=== PATIENT | male | born 1980 | race Caucasian/White ===

== ENCOUNTER 2017-09-06 11:39 | Emergency (ER) | payer OTHER ==
[~2017-09-06] VITALS: Ht 188 cm; Wt 66.0 kg
[2017-09-06] VITALS (9 sets, daily range): BP systolic 99–112; BP diastolic 53–68; PULSE 64–82; RESP 17–24; TEMP 98.4; O2SAT 98–99
[~2017-09-06 11:39] MED LIST: HYDR-3583 PO; QUET1TAB9 PO; QUET5TAB PO; WALKER/ADULT/FO1 MIS
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
[2017-09-06] MEDS ORDERED: SODIUM CHLORIDE 0.9% FLUSH 10 ML FLUSH IVF PRN (12:15)
[2017-09-06 13:10] LABS: AUTOMATED NEUTROPHIL # 4.5 TH/MM3 (1.8-7.7); BASOPHIL # 0.1 TH/MM3 (0-0.2); BASOPHIL % 0.9 % (0.0-2.0); EOSINOPHIL # 0.1 TH/MM3 (0-0.4); EOSINOPHIL % 1.9 % (0.0-4.0); HEMATOCRIT 34.9 % (39.0-51.0); HEMO FLAGS DIFF FINAL; LYMPH % 19.9 % (9.0-44.0); LYMPHOCYTE # 1.3 TH/MM3 (1.0-4.8); MEAN CELL VOLUME 91.3 FL (80.0-100.0); MEAN CORPUSCULAR HEMOGLOBIN 29.3 PG (27.0-34.0); MEAN CORPUSCULAR HGB CONC 32.1 % (32.0-36.0); MONO % 9.5 % (0.0-8.0); NEUT % 67.8 % (16.0-70.0); PLATELET COUNT 205 TH/MM3 (150-450); RED BLOOD COUNT 3.82 MIL/MM3 (4.50-5.90); RED CELL DISTRIBUTION WIDTH 13.7 % (11.6-17.2); WHITE BLOOD COUNT 6.6 TH/MM3 (4.0-11.0)
[2017-09-06 13:36] LABS: BLOOD, URINE NEG (NEG); COMMENT (UR) CULT NOT INDICATED; CULTURE IF INDICATED CULT NOT INDICATED; GLUCOSE,URINE NEG (NEG); KETONE, URINE NEG (NEG); MUCUS URINE FEW /lpf (OCC); NITRITE,URINE NEG (NEG); PH, URINE 5.5 (5.0-8.5); SQUAMOUS EPITHELIAL CELL URINE <1 /hpf (0-5); URINE COLOR YELLOW (YELLW/STRAW)
[2017-09-06 14:31] LABS: ALKALINE PHOSPHATASE 62 U/L (45-117); ALT (GPT) 49 U/L (12-78); ANION GAP 6 MEQ/L (5-15); AST (GOT) 41 U/L (15-37); BICARBONATE 25.9 MEQ/L (21.0-32.0); BLOOD UREA NITROGEN 19 MG/DL (7-18); CHLORIDE 108 MEQ/L (98-107); GLOMERULAR FILTRATION RATE 97 ML/MIN (>89); POTASSIUM 4.4 MEQ/L (3.5-5.1); SODIUM (NA) 140 MEQ/L (136-145); TOTAL BILIRUBIN ADULT 0.3 MG/DL (0.2-1.0)
[2017-09-06 14:40] LABS: ALCOHOL LESS THAN 3 MG/DL (0-5)
--- NOTE | 2017-09-07 14:31 | EKG ---
Date Performed: 09/06/2017 Time Performed: 12:32:45 PTAGE: 37 years EKG: Sinus rhythm POSSIBLE RIGHT VENTRICULAR CONDUCTION DELAY BORDERLINE ECG NO PREVIOUS TRACING DOCTOR: Go Medina Interpretating Date/Time 09/07/2017 14:23:49
== END 2017-09-06 16:54 | disposition home or self-care (01) ==
LOC: NEPC 11:39 → NEDAMB 16:54
DX: F19.10 Other psychoactive substance abuse, uncomplicated (principal); L97.319 Non-pressure chronic ulcer of right ankle with unspecified severity; R00.0 Tachycardia, unspecified; R94.31 Abnormal electrocardiogram [ECG] [EKG]; F17.200 Nicotine dependence, unspecified, uncomplicated; Z79.899 Other long term (current) drug therapy; Z86.59 Personal history of other mental and behavioral disorders; Z87.39 Personal history of other diseases of the musculoskeletal system and connective tissue
CPT/HCPCS: 80053; 80307; 81001; 85025; 93005; 99284; E0113

== ENCOUNTER 2017-09-08 17:56 | Emergency (ER) | payer SELFPAY ==
[~2017-09-08] VITALS: Ht 188 cm; Wt 70.0 kg
[~2017-09-08 17:56] MED LIST changes: -WALKER/ADULT/FO1 MIS
[2017-09-08 17:59] VITALS: BP 110/72; PULSE 100; RESP 21; TEMP 98.8; O2SAT 99
[2017-09-08 18:42] VITALS: BP 108/62; PULSE 68; RESP 17; O2SAT 100
[2017-09-08 19:08] VITALS: BP 101/62; PULSE 81; RESP 20; O2SAT 100
[2017-09-08 19:46] LABS: AUTOMATED NEUTROPHIL # 6.5 TH/MM3 (1.8-7.7); BASOPHIL # 0.1 TH/MM3 (0-0.2); BASOPHIL % 0.7 % (0.0-2.0); EOSINOPHIL # 0.1 TH/MM3 (0-0.4); EOSINOPHIL % 1.6 % (0.0-4.0); HEMATOCRIT 34.5 % (39.0-51.0); HEMO FLAGS DIFF FINAL; LYMPH % 15.3 % (9.0-44.0); LYMPHOCYTE # 1.3 TH/MM3 (1.0-4.8); MEAN CELL VOLUME 90.7 FL (80.0-100.0); MEAN CORPUSCULAR HEMOGLOBIN 29.9 PG (27.0-34.0); MONO % 6.8 % (0.0-8.0); NEUT % 75.6 % (16.0-70.0); PLATELET COUNT 223 TH/MM3 (150-450); RED CELL DISTRIBUTION WIDTH 13.9 % (11.6-17.2); WHITE BLOOD COUNT 8.6 TH/MM3 (4.0-11.0)
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
[2017-09-08 20:03] LABS: ANION GAP 3 MEQ/L (5-15); AST (GOT) 48 U/L (15-37); BICARBONATE 28.9 MEQ/L (21.0-32.0); BLOOD UREA NITROGEN 22 MG/DL (7-18); CHLORIDE 106 MEQ/L (98-107); GLOMERULAR FILTRATION RATE 87 ML/MIN (>89); POTASSIUM 4.4 MEQ/L (3.5-5.1); SODIUM (NA) 138 MEQ/L (136-145)
[2017-09-08 20:04] LABS: ALT (GPT) 62 U/L (12-78)
[2017-09-08 20:05] LABS: ALCOHOL LESS THAN 3 MG/DL (0-5)
[2017-09-08 20:06] LABS: ALKALINE PHOSPHATASE 74 U/L (45-117); TOTAL BILIRUBIN ADULT 0.4 MG/DL (0.2-1.0)
[2017-09-08] MEDS ORDERED: KETOROLAC TROMETHAMINE 60 MG/2 ML (IM) VIAL IM ONE (20:30)
[2017-09-08] MEDS ORDERED: PHENYTOIN SODIUM 100 MG CAP PO ONE (20:45)
[2017-09-08] MEDS ORDERED: DILA100C PO (21:00)
== END 2017-09-08 21:15 | disposition home or self-care (01) ==
LOC: NEPC 17:56
DX: G40.909 Epilepsy, unspecified, not intractable, without status epilepticus (principal); F31.9 Bipolar disorder, unspecified; F41.9 Anxiety disorder, unspecified; F17.210 Nicotine dependence, cigarettes, uncomplicated; F20.9 Schizophrenia, unspecified
CPT/HCPCS: 80053; 80185; 80307; 83735; 84100; 85025; 96372; 99284; J1885

== ENCOUNTER 2018-03-01 19:43 | Emergency (ER) | payer SELFPAY ==
[~2018-03-01] VITALS: Ht 172.7 cm; Wt 82.0 kg
[~2018-03-01 19:43] MED LIST changes: +DILA100C PO
[2018-03-01 21:59] VITALS: BP 95/60; PULSE 68; RESP 18; O2SAT 97
[2018-03-01] MEDS ORDERED: IBUP-232 PO (22:00)
[2018-03-01] MEDS ORDERED: SULFAMETHOXAZOLE-TRIMETHOPRIM DS 800-160 MG TAB PO ONE (22:00)
[2018-03-01] MEDS ORDERED: IBUPROFEN 600 MG TAB PO ONE (22:00)
[2018-03-01] MEDS ORDERED: BACT800T5 PO (22:00)
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
== END 2018-03-01 22:43 | disposition home or self-care (01) ==
LOC: NEPD 19:43
DX: S91.301A Unspecified open wound, right foot, initial encounter (principal); F17.210 Nicotine dependence, cigarettes, uncomplicated; F19.10 Other psychoactive substance abuse, uncomplicated; X58.XXXA Exposure to other specified factors, initial encounter; Z59.0 Homelessness
CPT/HCPCS: 99283

== ENCOUNTER 2018-06-06 07:16 | Inpatient (IN) ==
[2018-06-06] MEDS ORDERED: Morphine Inj 4 MG/ML Vial IV.PUSH ONE (07:27)
[2018-06-06] MEDS ORDERED: Sod Chloride 0.9% Inj 1,000 ML IV.SIG ONE (07:27)
--- NOTE | 2018-06-06 07:51 | ED ---
HPI General Chief Complaint: Abdominal Pain Stated Complaint: Adm pain Time Seen by Provider: 06/06/18 07:27 History of Present Illness HPI narrative: Patient presents to the emergency department with abdominal pain. Patient has epigastric pain for 1 week that radiates to his chest and back. Similar episode in the past and states that he was told he has gallbladder issues. Pain describes been intermittent initially, today has been constant, 4 out of 10, p.o. intake and bowel movement makes it worse, no alleviating factors. Tried Rolaids without relief of symptoms. Reports shortness of breath with the pain, nausea but no vomiting, nonbloody diarrhea, but denies fever, chills, dysuria. Related Data Home Medications Medication Instructions Recorded Confirmed No Known Home Medications 05/21/18 05/21/18 Previous Rx's Medication Instructions Recorded hydroxyzine HCl 25 mg PO Q8H PRN #14 tab 05/21/18 Allergies Allergy/AdvReac Type Severity Reaction Status Date / Time No Known Allergies Allergy Verified 05/21/18 00:25 Review of Systems ROS: all other systems reviewed are negative [facility] Social History Social History Substance History: Past History Second Hand Smoke Exposure: Yes Smoking Status: Current every day smoker Tobacco Type: Cigarettes How Often Do You Have a Drink Containing Alcohol: 4 or more times a week Recent Travel in [facility] within the Last 8 Weeks: No Recent Out of Country Travel within the Last 8 Weeks: No Immunization History Tetanus Immunization: Unsure Exam Narrative Exam Narrative: GENERAL: No acute distress. SKIN: Focused skin assessment warm/dry. HEAD: Atraumatic. Normocephalic. EYES: Pupils equal and round. No scleral icterus. No injection or drainage. ENT: No nasal bleeding or discharge. Mucous membranes pink and moist. NECK: Trachea midline. No JVD. CARDIOVASCULAR: Regular rate and rhythm. No murmur appreciated. RESPIRATORY: No accessory muscle use. Clear to auscultation. Breath sounds equal bilaterally. GASTROINTESTINAL: Abdomen soft, epigastric and left upper quadrant tender, nondistended. Right CVA tenderness. MUSCULOSKELETAL: Healing right foot ulcer. No clubbing. No cyanosis. No edema. NEUROLOGICAL: Awake and alert. No obvious cranial nerve deficits. Motor grossly within normal limits. Normal speech. PSYCHIATRIC: Appropriate mood and affect; insight and judgment normal. Course Initial Documented Vital Signs Temperature 98.6 F 06/06/18 07:22 Pulse Rate 68 06/06/18 07:22 Respiratory Rate 17 06/06/18 07:22 Blood Pressure 139/70 06/06/18 07:22 Pulse Oximetry 99 06/06/18 07:22 Last Documented Vital Signs Temperature 98.6 F 06/06/18 07:22 Pulse Rate 75 06/06/18 09:02 Respiratory Rate 17 06/06/18 09:02 Blood Pressure 132/64 06/06/18 09:02 Pulse Oximetry 100 06/06/18 09:02 Medical Decision Making MDM Narrative Medical decision making narrative: Patient presents to the emergency department with abdominal pain. Patient placed on hall monitor, continuous pulse ox, and IV access obtained. Labs and ultrasound ordered, as well as 2 mg IV morphine, 4 mg IV Zofran, 1 L IV normal saline. Labs: Slightly decreased hemoglobin hematocrit, increase BUN, AST U/S: CONCLUSION:1. Multiple gallstones with minimal tenderness of the gallbladder. There are no other ancillary signs of acute cholecystitis. CXR: No acute findings 0945: Spoke to Dr. Rush-Clear liquids, IV zosyn, NPO after MN, plan for surgery tomorrow. Pateint has been admitted for early cholecysitis, given an additional 2mg IV morphine for pain. Differential Diagnosis Differential Diagnosis: Cholecystitis, pancreatitis, peptic ulcer disease/GERD, ACS, kidney stones, UTI, Derrick Lab Data Result diagrams: 06/06/18 07:30 06/06/18 07:30 Lab Results 06/06/18 06/06/18 06/06/18 Range/Units 07:30 07:30 07:30 WBC 5.9 (4.0-11.0) th/mm3 RBC 3.91 L (4.50-5.90) mil/mm3 Hgb 12.1 L (13.0-17.0) gm/dL Hct 35.9 L (39.0-51.0) % MCV 91.8 (80.0-100.0) fL MCH 31.0 (27.0-34.0) pg MCHC 33.7 (32.0-36.0) % RDW 15.4 (11.6-17.2) % Plt Count 195 (150-450) th/mm3 MPV 7.9 (7.0-11.0) fL Neut % (Auto) 64.3 (16.0-70.0) % Lymph % (Auto) 25.7 (9.0-44.0) % [place] % (Auto) 7.2 (0.0-8.0) % Eos % (Auto) 2.4 (0.0-4.0) % Baso % (Auto) 0.4 (0.0-2.0) % Neut # (Auto) 3.8 (1.8-7.7) th/mm3 Lymph # (Auto) 1.5 (1.0-4.8) th/mm3 [place] # (Auto) 0.4 (0.0-0.9) th/mm3 Eos # (Auto) 0.1 (0.0-0.4) th/mm3 Baso # (Auto) 0.0 (0.0-0.2) th/mm3 WBC Differential . Differential Comment Auto diff final PT 9.9 (9.8-11.6) sec INR 1.0 Ratio APTT 25.3 (24.3-30.1) sec Sodium 145 (136-145) meq/L Potassium 4.1 (3.5-5.1) meq/L Chloride 113 H (98-107) meq/L Carbon Dioxide 28.3 (21.0-32.0) meq/L Anion Gap 4 L (5-15) meq/L BUN 23 H (7-18) mg/dL Creatinine 0.90 (0.60-1.30) mg/dL Estimated GFR Greater than 89 (>89) mL/min Random Glucose 84 (74-106) mg/dL Calcium 8.0 L (8.5-10.1) mg/dL Total Bilirubin 0.2 (0.2-1.0) mg/dL AST 46 H (15-37) U/L ALT 54 (12-78) U/L Alkaline Phosphatase 66 (45-117) U/L Total Creatine Kinase 99 (39-308) U/L Troponin I Less than 0.02 L (0.02-0.05) ng/mL Total Protein 5.7 L (6.4-8.2) g/dL Albumin 3.1 L (3.4-5.0) g/dL Lipase 244 (73-393) U/L Urine Color (Yellw/Straw) Urine Clarity (Clear) Urine pH (5.0-8.5) Ur Specific [place] (1.002-1.035) Urine Protein (Neg-Trace) mg/dL Urine Glucose (UA) (Negative) mg/dL Urine Ketones (Negative) mg/dL Urine Occult Blood (Negative) Urine Nitrate (Negative) Urine Bilirubin (Negative) Urine Urobilinogen (Less than 2) mg/dL Ur Leukocyte Esterase (Negative) Urine RBC (0-3) /hpf Urine WBC (0-5) /hpf Micro UA Comment Urine Culture Comments 06/06/18 Range/Units 09:15 WBC (4.0-11.0) th/mm3 RBC (4.50-5.90) mil/mm3 Hgb (13.0-17.0) gm/dL Hct (39.0-51.0) % MCV (80.0-100.0) fL MCH (27.0-34.0) pg MCHC (32.0-36.0) % RDW (11.6-17.2) % Plt Count (150-450) th/mm3 MPV (7.0-11.0) fL Neut % (Auto) (16.0-70.0) % Lymph % (Auto) (9.0-44.0) % [place] % (Auto) (0.0-8.0) % Eos % (Auto) (0.0-4.0) % Baso % (Auto) (0.0-2.0) % Neut # (Auto) (1.8-7.7) th/mm3 Lymph # (Auto) (1.0-4.8) th/mm3 [place] # (Auto) (0.0-0.9) th/mm3 Eos # (Auto) (0.0-0.4) th/mm3 Baso # (Auto) (0.0-0.2) th/mm3 WBC Differential Differential Comment PT (9.8-11.6) sec INR Ratio APTT (24.3-30.1) sec Sodium (136-145) meq/L Potassium (3.5-5.1) meq/L Chloride (98-107) meq/L Carbon Dioxide (21.0-32.0) meq/L Anion Gap (5-15) meq/L BUN (7-18) mg/dL Creatinine (0.60-1.30) mg/dL Estimated GFR (>89) mL/min Random Glucose (74-106) mg/dL Calcium (8.5-10.1) mg/dL Total Bilirubin (0.2-1.0) mg/dL AST (15-37) U/L ALT (12-78) U/L Alkaline Phosphatase (45-117) U/L Total Creatine Kinase (39-308) U/L Troponin I (0.02-0.05) ng/mL Total Protein (6.4-8.2) g/dL Albumin (3.4-5.0) g/dL Lipase (73-393) U/L Urine Color Yellow (Yellw/Straw) Urine Clarity Clear (Clear) Urine pH 6.0 (5.0-8.5) Ur Specific [place] 1.020 (1.002-1.035) Urine Protein Negative (Neg-Trace) mg/dL Urine Glucose (UA) Negative (Negative) mg/dL Urine Ketones Negative (Negative) mg/dL Urine Occult Blood Negative (Negative) Urine Nitrate Negative (Negative) Urine Bilirubin Negative (Negative) Urine Urobilinogen 4 or greater (Less than 2) mg/dL Ur Leukocyte Esterase Negative (Negative) Urine RBC Less than 1 (0-3) /hpf Urine WBC 1 (0-5) /hpf Micro UA Comment Culture not ind Urine Culture Comments Culture not ind Imaging Data Radiologist's impression: Chest X-Ray 06/06/18 07:27 CONCLUSION: 1. No acute cardiopulmonary disease. Gallbladder Ultrasound 06/06/18 07:27 CONCLUSION: 1. Multiple gallstones with minimal tenderness of the gallbladder. There are no other ancillary signs of acute cholecystitis. Discharge Plan Discharge Disposition Patient Disposition: 30 Still Patient Discharge Condition Condition: Stable Discharge Details Diagnosis: Acute cholecystitis, Chest pain Physicians Team ED Provider: Gracie Webb Primary Care Provider: Douglas Moya Rxs /Orders / Referrals /Forms Prescriptions: No Action No Known Home Medications RF: 0 hydroxyzine HCl 25 mg tablet 25 mg PO Q8H PRN (Reason: itching) Qty: 14 RF: 0 Discharge Interventions Interventions: Vital Signs Last Done: 06/06/18 09:02 Status ED Status: With Doctor
[2018-06-06 07:52] LABS: Baso % (Auto) 0.4 % (0.0-2.0); Eos # (Auto) 0.1 th/mm3 (0.0-0.4); Eos % (Auto) 2.4 % (0.0-4.0); Hematocrit 35.9 % (39.0-51.0); Hemoglobin 12.1 gm/dL (13.0-17.0); Lymph # (Auto) 1.5 th/mm3 (1.0-4.8); Lymph % (Auto) 25.7 % (9.0-44.0); Mean Corpuscular HGB Conc 33.7 % (32.0-36.0); Mean Corpuscular Volume 91.8 fL (80.0-100.0); Mean Platelet Volume 7.9 fL (7.0-11.0); Mono # (Auto) 0.4 th/mm3 (0.0-0.9); Mono % (Auto) 7.2 % (0.0-8.0); Neut # (Auto) 3.8 th/mm3 (1.8-7.7); Neut % (Auto) 64.3 % (16.0-70.0); Platelet Count 195 th/mm3 (150-450); Red Blood Count 3.91 mil/mm3 (4.50-5.90); Red Cell Distribution Width 15.4 % (11.6-17.2); White Blood Count 5.9 th/mm3 (4.0-11.0)
[2018-06-06 08:12] LABS: Alanine Aminotransferase 54 U/L (12-78); Alkaline Phosphatase 66 U/L (45-117); Total Protein 5.7 g/dL (6.4-8.2)
[2018-06-06 08:13] LABS: Activated Partial Thrombo Time 25.3 sec (24.3-30.1); Prothrombin Time 9.9 sec (9.8-11.6)
[2018-06-06 08:21] LABS: Creatine Kinase 99 U/L (39-308)
[2018-06-06 08:36] LABS: Albumin 3.1 g/dL (3.4-5.0); Anion Gap 4 meq/L (5-15); Aspartate Aminotransferase 46 U/L (15-37); Blood Urea Nitrogen 23 mg/dL (7-18); Carbon Dioxide 28.3 meq/L (21.0-32.0); Chloride 113 meq/L (98-107); Glomerular Filtration Rate Greater Than 89 mL/min (>89); Glucose,Random 84 mg/dL (74-106); Lipase 244 U/L (73-393); Potassium 4.1 meq/L (3.5-5.1); Sodium 145 meq/L (136-145)
--- NOTE | 2018-06-06 09:11 | XR ---
EXAM DATE: 06/06/2018 7:47 AM EDT AGE/SEX: 38 years / Male INDICATIONS: Pain left lower anterior chest for one week, pain is now moving around the left side to the back CLINICAL DATA: This is the patient's initial encounter. Patient reports that signs and symptoms have been present for 1 week and indicates a pain score of 8/10. MEDICAL/SURGICAL HISTORY: None. None. COMPARISON: No prior exams available for comparison. FINDINGS: A single AP view of the chest demonstrates the lungs to be symmetrically aerated without evidence of mass, infiltrate or effusion. The cardiomediastinal contours are unremarkable. Osseous structures a re intact. CONCLUSION: 1. No acute cardiopulmonary disease. Electronically signed by: Chintan Metz MD 06/06/2018 9:10 AM EDT
--- NOTE | 2018-06-06 09:33 | US ---
EXAM DATE: 06/06/2018 8:52 AM EDT AGE/SEX: 38 years / Male INDICATIONS: Abdominal pain. CLINICAL DATA: This is the patient's initial encounter. Patient reports that signs and symptoms have been present for 1 week and indicates a pain score of 5/10. MEDICAL/SURGICAL HISTORY: Hepatitis C. Glaucoma. . Right foot hardware surgery. Right foot ski n grafting. COMPARISON: No prior exams available for comparison. MEASUREMENTS: Liver:__ 17.6 cm. Common Bile Duct:__ 3mm. FINDINGS: Liver: Normal echotexture without focal lesion or ductal dilatation. Portal Vein: Hepatopedal flow seen in portal vein. Common Duct: No intraluminal mass or stone visualized. Gallbladder: Multiple gallstones with minimal tenderness over the gallbladder. Pancreas: The visualized portions are within normal limits Right Kidney: Normal echotexture and cortical thickness. No mass or hydronephrosis. Other: CONCLUSION: 1. Multiple gallstones with minimal tenderness of the gallbladder. There are no other ancillary sign s of acute cholecystitis. Electronically signed by: Syd Noel MD 06/06/2018 9:31 AM EDT
[2018-06-06] MEDS ORDERED: Piperacil/Tazo 3.375 GM Premix 50 ML IV.SIG ONE (09:44)
[2018-06-06 09:46] LABS: Bilirubin,Urine Negative (Negative); Clarity,Urine Clear (Clear); Color,Urine Yellow (Yellw/Straw); Glucose,Urine (UA) Negative (Negative); Leukocyte Esterase,Urine Negative (Negative); Nitrite,Urine Negative (Negative); Urobilinogen,Urine 4 or Greater mg/dL (Less than 2)
[2018-06-06] MEDS ORDERED: Morphine Sulfate Inj 2 MG/ML Vial IV.PUSH ONE (10:07)
[2018-06-06] MEDS ORDERED: Bisacodyl 10 MG Supp RECTAL PRN (10:49)
--- NOTE | 2018-06-06 10:49 | P.HP ---
History of Present Illness Primary Care Physician: Douglas Moya MD Chief Complaint: Abdominal pain History of Present Illness: This is a pleasant male who came to Emergency room with complaint of Abdominal pain on epigastric area for the last one week, and radiated to his back, has had similar episodes in the past, and states that he was told he has gallbladder issues. Pain describes been intermittent initially , today has been constant, 4 out of 10, p.o. intake and bowel movement makes it worse, no alleviating factors. Tried Rolaids without relief of symptoms. Reports shortness of breath with the pain, nausea but no vomiting, nonbloody diarrhea, but denies fever, chills, dysuria. discussed with Emergency medicine Physician found Quiroga sign is positive with sonogram, and also very symptomatic patient, for this reason was discussed by ER physician with General Surgery who recommended for Cholecystectomy to be performed tomorrow. not found Cholelithiasis or cholecystitis on Ultrasound. Seen in Emergency room in the presence of a friend, he states has severe abdominal pain. 8/10 in intensity on his right upper quadrant and asking for pain medicine. Inpatient Certification: I certify that the inpatient services were ordered in accordance with Medicare regulations governing the order. This includes certification that hospital inpatient services are reasonable and necessary and in the case of services not specified as inpatient-only under 42 CFR 419.22(n), that they are appropriately provided as inpatient services in accordance to with the 2-midnight benchmark under 43 CFR 412.3(e) Estimated Total Length of Stay (Days): 2 Plans for Post Hospital Care: Home Review of Systems All other systems reviewed negative except as stated in HPI [facility] - History History Provided By: Patient - Medical History Medical History: Medical History (Last Reviewed 05/21/18 @ 01:49 by Alva Cash DO) Glaucoma Hepatitis C - Family History Family History: Family History (Last Updated 06/06/18 @ 11:26 by [place] Kelsey MD) Father Stroke - Tobacco History Second Hand Smoke Exposure: Yes Tobacco Use In Past 30 Days: Yes Smoking Status: Current every day smoker Tobacco Type: Cigarettes - Alcohol History How Often Do You Have a Drink Containing Alcohol: 4 or more times a week - Substance Use History Substance History: Past History - Travel History Recent Travel in the [place] Within the Last 8 Weeks: No Recent Travel Out of the Country Within the Last 8 Weeks: No - Immunization History Tetanus Immunization: Unsure Medications and Allergies Active Medications: patient uses Ziprasidone Quetiapine Hydroxyzine Simbrinza (Brimonidine) Allergies Allergy/AdvReac Type Severity Reaction Status Date / Time No Known Allergies Allergy Verified 05/21/18 00:25 Home Medications Medication Instructions Recorded Confirmed Type No Known Home Medications 05/21/18 05/21/18 History Exam Vital signs: Vital Signs 06/06/18 07:22 06/06/18 09:02 Temperature 98.6 F Pulse Rate 68 75 Respiratory Rate 17 17 Blood Pressure 139/70 132/64 Pulse Oximetry 99 100 Narrative: GENERAL: Moderate distress due to Pain. SKIN: Focused skin assessment warm/dry. HEAD: Atraumatic. Normocephalic. EYES: Pupils equal and round. No scleral icterus. No injection or drainage. ENT: No nasal bleeding or discharge. Mucous membranes pink and moist. NECK: Trachea midline. No JVD. CARDIOVASCULAR: Regular rate and rhythm. No murmur appreciated. RESPIRATORY: No accessory muscle use. Clear to auscultation. Breath sounds equal bilaterally. GASTROINTESTINAL: soft, but generalized tenderness at this time. MUSCULOSKELETAL: Healing right foot ulcer. No clubbing. No cyanosis. No edema. NEUROLOGICAL: Awake and alert. No obvious cranial nerve deficits. Motor grossly within normal limits. Normal speech. PSYCHIATRIC: Appropriate mood and affect; insight and judgment normal. Results - Labs CBC & Chem 7: 06/06/18 07:30 06/06/18 07:30 Labs: Laboratory Results - last 24 hr 06/06/18 06/06/18 06/06/18 07:30 07:30 07:30 WBC 5.9 RBC 3.91 L Hgb 12.1 L Hct 35.9 L MCV 91.8 MCH 31.0 MCHC 33.7 RDW 15.4 Plt Count 195 MPV 7.9 Neut % (Auto) 64.3 Lymph % (Auto) 25.7 [place] % (Auto) 7.2 Eos % (Auto) 2.4 Baso % (Auto) 0.4 Neut # (Auto) 3.8 Lymph # (Auto) 1.5 [place] # (Auto) 0.4 Eos # (Auto) 0.1 Baso # (Auto) 0.0 WBC Differential . Differential Comment Auto diff final PT 9.9 INR 1.0 APTT 25.3 Sodium 145 Potassium 4.1 Chloride 113 H Carbon Dioxide 28.3 Anion Gap 4 L BUN 23 H Creatinine 0.90 Estimated GFR Greater than 89 Random Glucose 84 Calcium 8.0 L Total Bilirubin 0.2 AST 46 H ALT 54 Alkaline Phosphatase 66 Total Creatine Kinase 99 Troponin I Less than 0.02 L Total Protein 5.7 L Albumin 3.1 L Lipase 244 Urine Color Urine Clarity Urine pH Ur Specific [place] Urine Protein Urine Glucose (UA) Urine Ketones Urine Occult Blood Urine Nitrate Urine Bilirubin Urine Urobilinogen Ur Leukocyte Esterase Urine RBC Urine WBC Micro UA Comment Urine Culture Comments 06/06/18 09:15 WBC RBC Hgb Hct MCV MCH MCHC RDW Plt Count MPV Neut % (Auto) Lymph % (Auto) [place] % (Auto) Eos % (Auto) Baso % (Auto) Neut # (Auto) Lymph # (Auto) [place] # (Auto) Eos # (Auto) Baso # (Auto) WBC Differential Differential Comment PT INR APTT Sodium Potassium Chloride Carbon Dioxide Anion Gap BUN Creatinine Estimated GFR Random Glucose Calcium Total Bilirubin AST ALT Alkaline Phosphatase Total Creatine Kinase Troponin I Total Protein Albumin Lipase Urine Color Yellow Urine Clarity Clear Urine pH 6.0 Ur Specific [place] 1.020 Urine Protein Negative Urine Glucose (UA) Negative Urine Ketones Negative Urine Occult Blood Negative Urine Nitrate Negative Urine Bilirubin Negative Urine Urobilinogen 4 or greater Ur Leukocyte Esterase Negative Urine RBC Less than 1 Urine WBC 1 Micro UA Comment Culture not ind Urine Culture Comments Culture not ind - Imaging Impressions Chest X-Ray 06/06/18 07:27 CONCLUSION: 1. No acute cardiopulmonary disease. Gallbladder Ultrasound 06/06/18 07:27 CONCLUSION: 1. Multiple gallstones with minimal tenderness of the gallbladder. There are no other ancillary signs of acute cholecystitis. Caprini VTE Risk Assessment Caprini VTE Risk Assessment: No/Low Risk (score <= 1) Caprini Risk Assessment Model: Point Value = 1 Point Value = 2 Point Value = 3 Point Value = 5 Age 41-60 Minor surgery BMI > 25 kg/m2 Swollen legs Varicose veins or History of unexplained or recurrent spontaneous Oral contraceptives or hormone replacement Sepsis (< 1 month) Serious lung disease, including pneumonia (< 1 month) Abnormal pulmonary function Acute myocardial infarction Congestive heart failure (< 1 month) History of inflammatory bowel disease Medical patient at bed rest Age 61-74 Arthroscopic surgery Major open surgery (> 45 min) Laparoscopic surgery (> 45 min) Malignancy Confined to bed (> 72 hours) Immobilizing plaster cast Central venous access Age >= 75 History of VTE Family history of VTE Factor V Leiden Prothrombin [id number] Lupus anticoagulant Anticardiolipin antibodies Elevated serum homocysteine Heparin-induced thrombocytopenia Other congenital or acquired thrombophilia Stroke (< 1 month) Elective arthroplasty Hip, pelvis, or leg fracture Acute spinal cord injury (< 1 month) Prophylaxis Regimen: Total Risk Factor Score Risk Level Prophylaxis Regimen 0-1 Low Early ambulation 2 Moderate Order ONE of the following: *Sequential Compression Device (SCD) *Heparin 5000 units SQ BID 3-4 Higher Order ONE of the following medications: *Heparin 5000 units SQ TID *Enoxaparin/Lovenox 40 mg SQ daily (WT < 150 kg, CrCl > 30 mL/min) *Enoxaparin/Lovenox 30 mg SQ daily (WT < 150 kg, CrCl > 10-29 mL/min) *Enoxaparin/Lovenox 30 mg SQ BID (WT < 150 kg, CrCl > 30 mL/min) AND/OR *Sequential Compression Device (SCD) 5 or more Highest Order ONE of the following medications: *Heparin 5000 units SQ TID (Preferred with Epidurals) *Enoxaparin/Lovenox 40 mg SQ daily (WT < 150 kg, CrCl > 30 mL/min) *Enoxaparin/Lovenox 30 mg SQ daily (WT < 150 kg, CrCl > 10-29 mL/min) *Enoxaparin/Lovenox 30 mg SQ BID (WT < 150 kg, CrCl > 30 mL/min) AND *Sequential Compression Device (SCD) Assessment and Plan - Plan 1. Intractable Abdominal pain secondary to Cholelithiasis/Cholecystitis, has positive Quiroga sign on Ultrasound, but not found Cholecystitis, and No Leukocytosis, he was recommended by General surgery doctor Victor Manuel for clear liquids, keep the patient NPO at midnight and Procedure for tomorrow Laparoscopic Cholecystectomy, continue Zosyn 2. Polysubstance abuse he states smoker Cigarettes on pack daily, Alcohol occasional, Cocaine and marijuana strongly recommended to avoid this substances, stop smoking counseled. 3. Right foot dressed asked for wound care DVT prophylaxis with SCDs awaiting for procedure tomorrow. Code Status: Full Code Discussed Condition With: Patient, Friend in the room and ER physician. Discharge Planning: Once cleared by General Surgery.
[2018-06-06] MEDS ORDERED: Acetaminophen 325 MG Tablet PO PRN (10:51)
[2018-06-06] MEDS ORDERED: Morphine Sulfate Inj 2 MG/ML Vial IV.PUSH PRN (11:32)
[2018-06-06] MEDS: Sod Chloride 0.9% Inj 1,000 ML IV.CONT SCH (11:35)
--- NOTE | 2018-06-06 14:10 | P.CONGS ---
[facility] Gen Surgery Consult Note Consult date: 06/06/18 Reason for consult: abdominal pain Requesting physician: [place] Kel[place] Narrative: This is a 38 year old male with a past medical history of glaucoma and hepatitis C who presents to the emergency department with complaints of abdominal pain for about 1 week. Patient denies any associated nausea or vomiting. The patient denies and fevers or chills. The patient does report that he has been told he has had gallbladder issues in the past. The patient has not been evaluated by surgeon for laparoscopic cholecystectomy. A ultrasound of the gallbladder was obtained which shows cholelithiasis. The patient's white blood cell count is normal. The patient's liver enzymes are essentially normal. A General Surgery consultation has been requested for evaluation of laparoscopic cholecystectomy. <Pam Zaldivar - Last Filed: 06/07/18 09:54> Review of Systems Constitutional: Denies chills, Denies fever(s) Eyes: Denies blurry vision Ears, Nose, Mouth, and Throat: Denies facial pain Cardiovascular: Denies chest pain, Denies chest pain at rest, Denies chest pain with activity Respiratory: Denies chest congestion, Denies cough Gastrointestinal: Reports abdominal pain, Denies belching, Denies nausea, Denies vomiting Genitourinary: Denies urinary frequency, Denies urinary hesitancy Musculoskeletal: Denies abnormal walking, Denies muscle cramps, Denies muscle weakness Skin/Breast: Denies lesions Neurologic: Denies abnormal hearing Psychiatric: Denies anxiety, Denies confusion, Denies depression Endocrine: Denies cold intolerance, Denies heat intolerance Hematologic/Lymphatic: Denies easy bleeding Allergic/Immunologic: Denies hives <Pam Zaldivar - Last Filed: 06/07/18 09:54> PMFSH - History History Provided By: Patient - Medical History Medical History: Medical History (Last Reviewed 06/06/18 @ 14:06 by MIKAELA Zuñiga) Glaucoma Hepatitis C - Surgical History Surgical History: Surgical History (Last Reviewed 06/06/18 @ 14:06 by MIKAELA Zuñiga) Status post surgical manipulation of ankle joint - Family History Family History: Family History (Last Updated 06/06/18 @ 11:26 by [place] Kelsey MD) Father Stroke - Tobacco History Second Hand Smoke Exposure: Yes Tobacco Use In Past 30 Days: Yes Smoking Status: Current every day smoker Tobacco Type: Cigarettes - Alcohol History How Often Do You Have a Drink Containing Alcohol: Monthly or less - Substance Use History Substance History: 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 ago) - Travel History Recent Travel in the [place] Within the Last 8 Weeks: No Recent Travel Out of the Country Within the Last 8 Weeks: No - Immunization History Tetanus Immunization: Unsure <Pam Zaldivar - Last Filed: 06/07/18 09:54> - Medical History Medical History: Medical History (Last Reviewed 06/06/18 @ 14:06 by MIKAELA Zuñiga) Glaucoma Hepatitis C - Surgical History Surgical History: Surgical History (Last Reviewed 06/06/18 @ 14:06 by MIKAELA Zuñiga) Status post surgical manipulation of ankle joint - Family History Family History: Family History (Last Updated 06/06/18 @ 11:26 by [place] Kelsey MD) Father Stroke <Chaka Rush - Last Filed: 06/07/18 14:36> Medications and Allergies Active Medications: Active Medications Acetaminophen (Tylenol) 650 mg PO Q4H PRN PRN Reason: Temp > 100.4 Al Hydroxide/Mg Hydroxide (Milk Of Magnesia Liq) 30 ml PO Q12H PRN PRN Reason: Mild Constipation Bisacodyl (Dulcolax Supp) 10 mg RECTAL DAILY PRN PRN Reason: SEVERE CONSITIPATION Sodium Chloride (Ns Inj) 1,000 mls @ 100 mls/hr IV.CONT .Q10H [facility] Last Admin: 06/06/18 11:35 Dose: 100 mls/hr Piperacillin/Tazobactam/Dextrose (Zosyn 3.375 Gm Premix) 50 mls @ 100 mls/hr IV.SIG Q6H [facility] Lactulose (Lactulose Liq) 30 ml PO DAILY PRN PRN Reason: SEVERE CONSITIPATION Morphine Sulfate (Morphine Inj) 2 mg IV.PUSH Q4H PRN PRN Reason: PAIN SCALE 7 TO 10 SEVERE Senna/Docusate Sodium (Suzette-Colace) 1 tab PO BID [facility] Sennosides (Senokot) 17.2 mg PO Q12H PRN PRN Reason: Moderate Constipation Temazepam (Restoril) 15 mg PO HS PRN PRN Reason: INSOMNIA <Pam Zaldivar - Last Filed: 06/07/18 09:54> Active Medications: Active Medications Acetaminophen (Tylenol) 650 mg PO Q4H PRN PRN Reason: Temp > 100.4, pain 1 to 10 Hydrocodone Bitart/Acetaminophen ([place] 7.5/325) 1 tab PO Q4H PRN PRN Reason: Acute Pain Last Admin: 06/07/18 11:08 Dose: 1 tab Al Hydroxide/Mg Hydroxide (Milk Of Magnesia Liq) 30 ml PO Q12H PRN PRN Reason: Mild Constipation Bisacodyl (Dulcolax Supp) 10 mg RECTAL DAILY PRN PRN Reason: SEVERE CONSITIPATION Sodium Chloride (Ns Inj) 1,000 mls @ 100 mls/hr IV.CONT .Q10H [facility] Last Admin: 06/07/18 11:14 Dose: 100 mls/hr Piperacillin/Tazobactam/Dextrose (Zosyn 3.375 Gm Premix) 50 mls @ 100 mls/hr IV.SIG Q6H [facility] Last Infusion: 06/07/18 11:37 Dose: Infused Lactulose (Lactulose Liq) 30 ml PO DAILY PRN PRN Reason: SEVERE CONSITIPATION Last Admin: 06/07/18 11:14 Dose: 30 ml Senna/Docusate Sodium (Suzette-Colace) 1 tab PO BID [facility] Last Admin: 06/07/18 11:07 Dose: 1 tab Sennosides (Senokot) 17.2 mg PO Q12H PRN PRN Reason: Moderate Constipation Temazepam (Restoril) 15 mg PO HS PRN PRN Reason: INSOMNIA <Chaka Rush - Last Filed: 06/07/18 14:36> Allergies Allergy/AdvReac Type Severity Reaction Status Date / Time No Known Allergies Allergy Verified 05/21/18 00:25 Home Medications Medication Instructions Recorded Confirmed Type hydroxyzine pamoate [Vistaril] 50 mg PO TID-QID PRN 06/06/18 06/06/18 History quetiapine [Seroquel] 50 mg TID PRN 06/06/18 06/06/18 History ziprasidone HCl 40 mg PO BID 06/06/18 06/06/18 History Exam Vital signs: Vital Signs 06/06/18 07:22 06/06/18 09:02 06/06/18 11:37 Temperature 98.6 F Pulse Rate 68 75 71 Respiratory Rate 17 17 17 Blood Pressure 139/70 132/64 132/65 Pulse Oximetry 99 100 100 Narrative: GENERAL: Awake and alert somewhat agitated 38 year old male resting in bed in no acute distress. SKIN: Warm and dry. HEAD: Atraumatic. Normocephalic. EYES: Pupils equal and round. No scleral icterus. No injection or drainage. ENT: No nasal bleeding or discharge. Mucous membranes pink and moist. NECK: Trachea midline. CARDIOVASCULAR: Regular rate and rhythm. RESPIRATORY: No accessory muscle use. Clear to auscultation. Breath sounds equal bilaterally. GASTROINTESTINAL: Abdomen soft; nondistended; flat abdomen. RUQ tenderness with palpation. No visible scars or hernias. MUSCULOSKELETAL: Extremities without clubbing, cyanosis, or edema. No obvious deformities. NEUROLOGICAL: Awake and alert. No obvious cranial nerve deficits. Motor grossly within normal limits. Five out of 5 muscle strength in the arms and legs. Normal speech. PSYCHIATRIC: Appropriate mood and affect; insight and judgment normal. <Pam Zaldivar - Last Filed: 06/07/18 09:54> Vital signs: Vital Signs 06/06/18 16:00 06/06/18 20:00 06/07/18 00:00 Temperature 98.0 F 97.6 F 97.6 F Pulse Rate 57 L 52 L 39 L Respiratory Rate 18 18 18 Blood Pressure 110/68 93/55 L 91/64 L Pulse Oximetry 99 99 96 06/07/18 04:00 06/07/18 07:52 06/07/18 08:00 Temperature 97.5 F L 97.6 F Pulse Rate 38 L 44 L 46 L Respiratory Rate 17 20 Blood Pressure 103/76 114/69 Pulse Oximetry 95 95 06/07/18 11:52 06/07/18 12:00 Temperature 97.6 F Pulse Rate 46 L 39 L Respiratory Rate 20 Blood Pressure 132/78 Pulse Oximetry 95 Intake & Output 06/06/18 06/07/18 06/07/18 18:59 06:59 18:59 Intake Total 50 / 50 2099 / 2099 1050 / 1050 Balance 50 / 50 2099 1050 / 1050 Weight 65 kg 66 kg Intake: IV 50 / 50 2099 1050 / 1050 NS Inj 1,000 ML @ 100 mls/hr IV 1000 / 1000 1000 / 1000 .CONT .Q10H [facility] Rx#:[id number] Zosyn 3.375 GM Premix 50 ML @ 50 / 50 100 / 100 50 / 50 100 mls/hr IV.SIG Q6H [facility] Rx#: [id number] NS Inj 1,000 ML @ Wide Open IV. 1000 / 1000 SIG BOLUS ONE Rx#:[id number] Other: # Voids 1 Date of Last Bowel Movement 06/06/18 06/06/18 Weight On Admission 65 kg <Chaka Rsuh - Last Filed: 06/07/18 14:36> Results - Labs 06/07/18 06:30 06/07/18 06:30 Laboratory Results WBC 5.9 th/mm3 (4.0-11.0) 06/06/18 07:30 RBC 3.91 mil/mm3 (4.50-5.90) L 06/06/18 07:30 Hgb 12.1 gm/dL (13.0-17.0) L 06/06/18 07:30 Hct 35.9 % (39.0-51.0) L 06/06/18 07:30 MCV 91.8 fL (80.0-100.0) 06/06/18 07:30 MCH 31.0 pg (27.0-34.0) 06/06/18 07:30 MCHC 33.7 % (32.0-36.0) 06/06/18 07:30 RDW 15.4 % (11.6-17.2) 06/06/18 07:30 Plt Count 195 th/mm3 (150-450) 06/06/18 07:30 MPV 7.9 fL (7.0-11.0) 06/06/18 07:30 Neut % (Auto) 64.3 % (16.0-70.0) 06/06/18 07:30 Lymph % (Auto) 25.7 % (9.0-44.0) 06/06/18 07:30 Gray % (Auto) 7.2 % (0.0-8.0) 06/06/18 07:30 Eos % (Auto) 2.4 % (0.0-4.0) 06/06/18 07:30 Baso % (Auto) 0.4 % (0.0-2.0) 06/06/18 07:30 Neut # (Auto) 3.8 th/mm3 (1.8-7.7) 06/06/18 07:30 Lymph # (Auto) 1.5 th/mm3 (1.0-4.8) 06/06/18 07:30 Gray # (Auto) 0.4 th/mm3 (0.0-0.9) 06/06/18 07:30 Eos # (Auto) 0.1 th/mm3 (0.0-0.4) 06/06/18 07:30 Baso # (Auto) 0.0 th/mm3 (0.0-0.2) 06/06/18 07:30 WBC Differential . 06/06/18 07:30 Differential Comment Auto diff final 06/06/18 07:30 PT 9.9 sec (9.8-11.6) 06/06/18 07:30 INR 1.0 Ratio 06/06/18 07:30 APTT 25.3 sec (24.3-30.1) 06/06/18 07:30 Sodium 145 meq/L (136-145) 06/06/18 07:30 Potassium 4.1 meq/L (3.5-5.1) 06/06/18 07:30 Chloride 113 meq/L (98-107) H 06/06/18 07:30 Carbon Dioxide 28.3 meq/L (21.0-32.0) 06/06/18 07:30 Anion Gap 4 meq/L (5-15) L 06/06/18 07:30 BUN 23 mg/dL (7-18) H 06/06/18 07:30 Creatinine 0.90 mg/dL (0.60-1.30) 06/06/18 07:30 Estimated GFR Greater than 89 mL/min (>89) 06/06/18 07:30 Random Glucose 84 mg/dL (74-106) 06/06/18 07:30 Calcium 8.0 mg/dL (8.5-10.1) L 06/06/18 07:30 Total Bilirubin 0.2 mg/dL (0.2-1.0) 06/06/18 07:30 AST 46 U/L (15-37) H 06/06/18 07:30 ALT 54 U/L (12-78) 06/06/18 07:30 Alkaline Phosphatase 66 U/L (45-117) 06/06/18 07:30 Total Creatine Kinase 99 U/L (39-308) 06/06/18 07:30 Troponin I Less than 0.02 ng/mL (0.02-0.05) L 06/06/18 07:30 Total Protein 5.7 g/dL (6.4-8.2) L 06/06/18 07:30 Albumin 3.1 g/dL (3.4-5.0) L 06/06/18 07:30 Lipase 244 U/L (73-393) 06/06/18 07:30 Urine Color Yellow (Yellw/Straw) 06/06/18 09:15 Urine Clarity Clear (Clear) 06/06/18 09:15 Urine pH 6.0 (5.0-8.5) 06/06/18 09:15 Ur Specific [place] 1.020 (1.002-1.035) 06/06/18 09:15 Urine Protein Negative mg/dL (Neg-Trace) 06/06/18 09:15 Urine Glucose (UA) Negative mg/dL (Negative) 06/06/18 09:15 Urine Ketones Negative mg/dL (Negative) 06/06/18 09:15 Urine Occult Blood Negative (Negative) 06/06/18 09:15 Urine Nitrate Negative (Negative) 06/06/18 09:15 Urine Bilirubin Negative (Negative) 06/06/18 09:15 Urine Urobilinogen 4 or greater mg/dL (Less than 2) 06/06/18 09:15 Ur Leukocyte Esterase Negative (Negative) 06/06/18 09:15 Urine RBC Less than 1 /hpf (0-3) 06/06/18 09:15 Urine WBC 1 /hpf (0-5) 06/06/18 09:15 Micro UA Comment Culture not ind 06/06/18 09:15 Urine Culture Comments Culture not ind 06/06/18 09:15 Impressions Chest X-Ray 06/06/18 07:27 CONCLUSION: 1. No acute cardiopulmonary disease. Gallbladder Ultrasound 06/06/18 07:27 CONCLUSION: 1. Multiple gallstones with minimal tenderness of the gallbladder. There are no other ancillary signs of acute cholecystitis. - Imaging US - abdomen: report reviewed <Pam Zaldivar - Last Filed: 06/07/18 09:54> - Labs 06/07/18 06:30 06/07/18 06:30 Abnormal lab results 06/07/18 06/07/18 06/07/18 Range/Units 06:30 06:30 06:30 RBC 3.84 L (4.50-5.90) mil/mm3 Hgb 11.9 L (13.0-17.0) gm/dL Hct 35.8 L (39.0-51.0) % Chloride 114 H (98-107) meq/L Anion Gap 3 L (5-15) meq/L Calcium 7.9 L (8.5-10.1) mg/dL AST 50 H (15-37) U/L Troponin I (0.02-0.05) ng/mL Total Protein 5.0 L D (6.4-8.2) g/dL Albumin 2.8 L (3.4-5.0) g/dL TSH 4.000 H (0.358-3.740) uIU/mL 06/07/18 Range/Units 06:30 RBC (4.50-5.90) mil/mm3 Hgb (13.0-17.0) gm/dL Hct (39.0-51.0) % Chloride (98-107) meq/L Anion Gap (5-15) meq/L Calcium (8.5-10.1) mg/dL AST (15-37) U/L Troponin I Less than 0.02 L (0.02-0.05) ng/mL Total Protein (6.4-8.2) g/dL Albumin (3.4-5.0) g/dL TSH (0.358-3.740) uIU/mL Diabetes panel 06/07/18 Range/Units 06:30 Sodium 145 (136-145) meq/L Potassium 4.4 (3.5-5.1) meq/L Chloride 114 H (98-107) meq/L Carbon Dioxide 28.1 (21.0-32.0) meq/L BUN 12 (7-18) mg/dL Creatinine 0.92 (0.60-1.30) mg/dL Calcium 7.9 L (8.5-10.1) mg/dL AST 50 H (15-37) U/L ALT 57 (12-78) U/L Alkaline Phosphatase 51 (45-117) U/L Total Protein 5.0 L D (6.4-8.2) g/dL Albumin 2.8 L (3.4-5.0) g/dL Thyroid panel 06/07/18 Range/Units 06:30 TSH 4.000 H (0.358-3.740) uIU/mL Calcium panel 06/07/18 Range/Units 06:30 Calcium 7.9 L (8.5-10.1) mg/dL Albumin 2.8 L (3.4-5.0) g/dL Pituitary panel 06/07/18 06/07/18 Range/Units 06:30 06:30 Sodium 145 (136-145) meq/L Potassium 4.4 (3.5-5.1) meq/L Chloride 114 H (98-107) meq/L Carbon Dioxide 28.1 (21.0-32.0) meq/L BUN 12 (7-18) mg/dL Creatinine 0.92 (0.60-1.30) mg/dL Calcium 7.9 L (8.5-10.1) mg/dL TSH 4.000 H (0.358-3.740) uIU/mL Adrenal panel 06/07/18 Range/Units 06:30 Sodium 145 (136-145) meq/L Potassium 4.4 (3.5-5.1) meq/L Chloride 114 H (98-107) meq/L Carbon Dioxide 28.1 (21.0-32.0) meq/L BUN 12 (7-18) mg/dL Creatinine 0.92 (0.60-1.30) mg/dL Calcium 7.9 L (8.5-10.1) mg/dL Total Bilirubin 0.5 (0.2-1.0) mg/dL AST 50 H (15-37) U/L ALT 57 (12-78) U/L Alkaline Phosphatase 51 (45-117) U/L Total Protein 5.0 L D (6.4-8.2) g/dL Albumin 2.8 L (3.4-5.0) g/dL All other labs normal. <Chaka Rush - Last Filed: 06/07/18 14:36> Assessment and Plan - Assessment (1) Cholelithiases Code(s): K80.20 - Calculus of gallbladder without cholecystitis without obstruction Status: Acute Plan: 38 year old male with abdominal pain cholelithiasis -Clear liquids today; NPO after MN -Plan for laparoscopic cholecystectomy; possible open ; possible intraoperative cholangiogram tomorrow - IVF -Pain control -Obtain consents -Procedure explained in detail including risks such as bleeding, infection and injury to the bowel -The patient understood and all questions were answered -Thank you for this consult; We will continue to follow - Plan Discussed Condition With: Dr. Rush Mr. Jerome <Pam Zaldivar - Last Filed: 06/07/18 09:54> - Assessment (1) Cholelithiases Code(s): K80.20 - Calculus of gallbladder without cholecystitis without obstruction Status: Acute - Plan Discharge Planning: The exam, history, and the medical decision-making described in the above note were completed with the assistance of the mid-level provider. I reviewed and agree with the findings presented. I attest that I had a [id number] encounter with the patient on the same day, and personally performed and documented my assessment and findings in the medical record. patient with acute on chronic cholecystitis RUQ pain and positive Quiroga's sign on exam d/w patient, needs lap ally, d/w risk, benefits and alternatives, patient wants to proceed with surgery next 24-48h continue ABX, NPO after midnight <Chaka Rush - Last Filed: 06/07/18 14:36>
--- NOTE | 2018-06-06 16:17 | ECG ---
Date Performed: 06/06/2018 Time Performed: 07:35:59 PTAGE: 38 years EKG: SINUS BRADYCARDIA BORDERLINE ECG Since the PREVIOUS TRACING , no significant change noted PREVIOUS TRACIN09/06/2017 12.32 DOCTOR: Rachelle Guaman Interpretating Date/Time 06/06/2018 16:16:52
[2018-06-06] MEDS: Piperacil/Tazo 3.375 GM Premix 50 ML IV.SIG SCH ×2 (16:42→21:29)
[2018-06-06] MEDS ORDERED: Temazepam 15 MG Capsule PO PRN (21:00)
[2018-06-06] MEDS: Senna/Docusate Sodium 8.6/50 MG Tablet PO SCH (21:30)
[2018-06-07] MEDS ORDERED: Sod Chloride 0.9% Inj 1,000 ML IV.SIG ONE (00:17)
[2018-06-07] MEDS: Sod Chloride 0.9% Inj 1,000 ML IV.CONT SCH ×4 (01:09→23:39)
[2018-06-07] MEDS: Piperacil/Tazo 3.375 GM Premix 50 ML IV.SIG SCH ×4 (05:03→21:40)
--- NOTE | 2018-06-07 06:03 | ECG ---
Date Performed: 06/06/2018 Time Performed: 22:22:55 PTAGE: 38 years EKG: SINUS BRADYCARDIA POSSIBLE RIGHT VENTRICULAR CONDUCTION DELAY BORDERLINE ECG No significant change from prior electrocardiogram. PREVIOUS TRACING : 06/06/2018 07.35 DOCTOR: Raciel Katz Interpretating Date/Time 06/07/2018 06:02:48
[2018-06-07 06:48] LABS: Baso % (Auto) 0.7 % (0.0-2.0); Eos # (Auto) 0.1 th/mm3 (0.0-0.4); Eos % (Auto) 1.9 % (0.0-4.0); Hematocrit 35.8 % (39.0-51.0); Hemoglobin 11.9 gm/dL (13.0-17.0); Lymph # (Auto) 1.6 th/mm3 (1.0-4.8); Lymph % (Auto) 38.9 % (9.0-44.0); Mean Corpuscular HGB Conc 33.2 % (32.0-36.0); Mean Corpuscular Volume 93.3 fL (80.0-100.0); Mean Platelet Volume 7.6 fL (7.0-11.0); Mono # (Auto) 0.3 th/mm3 (0.0-0.9); Mono % (Auto) 6.1 % (0.0-8.0); Neut # (Auto) 2.2 th/mm3 (1.8-7.7); Neut % (Auto) 52.4 % (16.0-70.0); Platelet Count 172 th/mm3 (150-450); Red Blood Count 3.84 mil/mm3 (4.50-5.90); Red Cell Distribution Width 15.4 % (11.6-17.2); White Blood Count 4.2 th/mm3 (4.0-11.0)
--- NOTE | 2018-06-07 07:11 | P.PNOP ---
Subjective Interval history: patient known to dr Frost admitted for abdominal pain reports that right foot wound is improving. states had infection while in skilled nursing but they started him on Abx and it cleared up reports that he can walk on it with no difficulty. Physical Exam Vital signs: Vital Signs 06/06/18 07:22 06/06/18 09:02 06/06/18 11:37 Temperature 98.6 F Pulse Rate 68 75 71 Respiratory Rate 17 17 17 Blood Pressure 139/70 132/64 132/65 Pulse Oximetry 99 100 100 06/06/18 16:00 06/06/18 20:00 06/07/18 00:00 Temperature 98.0 F 97.6 F 97.6 F Pulse Rate 57 L 46 L 43 L Respiratory Rate 18 18 18 Blood Pressure 110/68 93/55 L 91/64 L Pulse Oximetry 99 99 96 06/07/18 04:00 Temperature 97.5 F L Pulse Rate 38 L Respiratory Rate 17 Blood Pressure 103/76 Pulse Oximetry 95 Intake & Output 06/06/18 06/07/18 06/07/18 18:59 06:59 18:59 Intake Total 50 / 50 2100 / 2100 Balance 50 / 50 2100 / 2100 Weight 65 kg 66 kg Intake: IV 50 / 50 2100 / 2100 NS Inj 1,000 ML @ 100 mls/hr IV 1000 / 1000 .CONT .Q10H [facility] Rx#:[id number] Zosyn 3.375 GM Premix 50 ML @ 50 / 50 100 / 100 100 mls/hr IV.SIG Q6H [facility] Rx#: [id number] NS Inj 1,000 ML @ Wide Open IV. 1000 / 1000 SIG BOLUS ONE Rx#:[id number] Other: # Voids 1 Date of Last Bowel Movement 06/06/18 Weight On Admission 65 kg Narrative: RLE: full dorsiflexion/plantar flexion with minimal discomfort. majority of skin graft is completely healed. ulcerative wound approx 3-4cm in diameter over anteromedial ankle. good evidence of granulation tissue present. minimal drainage. nvi. Results - Labs CBC & Chem 7: 06/07/18 06:30 06/06/18 07:30 Laboratory Results - last 24 hr 06/06/18 06/06/18 06/06/18 07:30 07:30 07:30 WBC 5.9 RBC 3.91 L Hgb 12.1 L Hct 35.9 L MCV 91.8 MCH 31.0 MCHC 33.7 RDW 15.4 Plt Count 195 MPV 7.9 Neut % (Auto) 64.3 Lymph % (Auto) 25.7 [place] % (Auto) 7.2 Eos % (Auto) 2.4 Baso % (Auto) 0.4 Neut # (Auto) 3.8 Lymph # (Auto) 1.5 [place] # (Auto) 0.4 Eos # (Auto) 0.1 Baso # (Auto) 0.0 WBC Differential . Differential Comment Auto diff final PT 9.9 INR 1.0 APTT 25.3 Sodium 145 Potassium 4.1 Chloride 113 H Carbon Dioxide 28.3 Anion Gap 4 L BUN 23 H Creatinine 0.90 Estimated GFR Greater than 89 Random Glucose 84 Calcium 8.0 L Total Bilirubin 0.2 AST 46 H ALT 54 Alkaline Phosphatase 66 Total Creatine Kinase 99 Troponin I Less than 0.02 L Total Protein 5.7 L Albumin 3.1 L Lipase 244 Urine Color Urine Clarity Urine pH Ur Specific [place] Urine Protein Urine Glucose (UA) Urine Ketones Urine Occult Blood Urine Nitrate Urine Bilirubin Urine Urobilinogen Ur Leukocyte Esterase Urine RBC Urine WBC Micro UA Comment Urine Culture Comments 06/06/18 06/07/18 09:15 06:30 WBC 4.2 RBC 3.84 L Hgb 11.9 L Hct 35.8 L MCV 93.3 MCH 31.0 MCHC 33.2 RDW 15.4 Plt Count 172 MPV 7.6 Neut % (Auto) 52.4 Lymph % (Auto) 38.9 [place] % (Auto) 6.1 Eos % (Auto) 1.9 Baso % (Auto) 0.7 Neut # (Auto) 2.2 Lymph # (Auto) 1.6 [place] # (Auto) 0.3 Eos # (Auto) 0.1 Baso # (Auto) 0.0 WBC Differential . Differential Comment Auto diff final PT INR APTT Sodium Potassium Chloride Carbon Dioxide Anion Gap BUN Creatinine Estimated GFR Random Glucose Calcium Total Bilirubin AST ALT Alkaline Phosphatase Total Creatine Kinase Troponin I Total Protein Albumin Lipase Urine Color Yellow Urine Clarity Clear Urine pH 6.0 Ur Specific [place] 1.020 Urine Protein Negative Urine Glucose (UA) Negative Urine Ketones Negative Urine Occult Blood Negative Urine Nitrate Negative Urine Bilirubin Negative Urine Urobilinogen 4 or greater Ur Leukocyte Esterase Negative Urine RBC Less than 1 Urine WBC 1 Micro UA Comment Culture not ind Urine Culture Comments Culture not ind - Imaging Impressions Chest X-Ray 06/06/18 07:27 CONCLUSION: 1. No acute cardiopulmonary disease. Gallbladder Ultrasound 06/06/18 07:27 CONCLUSION: 1. Multiple gallstones with minimal tenderness of the gallbladder. There are no other ancillary signs of acute cholecystitis. Assessment and Plan - Assessment and Plan 1) Right Medial Malleolus Fx s/p ORIF and skin grafting from 08/03/2017 -WBAT -daily wet to dry dressings of ankle -will order ankle xray today to evaluate fracture -medical management of gall bladder issues -wound care -no further ortho treatment warranted at this time
[2018-06-07 07:48] LABS: Alanine Aminotransferase 57 U/L (12-78); Albumin 2.8 g/dL (3.4-5.0); Alkaline Phosphatase 51 U/L (45-117); Anion Gap 3 meq/L (5-15); Aspartate Aminotransferase 50 U/L (15-37); Blood Urea Nitrogen 12 mg/dL (7-18); Calcium 7.9 mg/dL (8.5-10.1); Carbon Dioxide 28.1 meq/L (21.0-32.0); Chloride 114 meq/L (98-107); Glomerular Filtration Rate Greater Than 89 mL/min (>89); Glucose,Random 85 mg/dL (74-106); Potassium 4.4 meq/L (3.5-5.1); Sodium 145 meq/L (136-145)
--- NOTE | 2018-06-07 08:14 | ECG ---
Date Performed: 06/07/2018 Time Performed: 06:48:22 PTAGE: 38 years EKG: Sinus bradycardia rSr'(V1) - probable normal variant Possible anterior infarct - age undete rmined Abnormal ECG No significant change from prior electrocardiogram. DOCTOR: Raciel Katz Interpretating Date/Time 06/07/2018 08:14:03
--- NOTE | 2018-06-07 10:21 | P.PNWCN ---
Wound Care Nurse Consult Description: Wound consult ordered by for wound management. Communicated with: Elliot RN, Recommendation: 1. Cleanse right medial malleolus with normal saline pat dry. 2 Apply saline moistened fluffed gauze to open area cover with dry dressing. 3. Sign and date all dressings , Change dressing daily or as needed for dislodgement/exudate. Additional information: Grants Assistant attempted to se patient today.Patient alert aggravated in bed upon writers arrival.Grants Assistant introduced self and title .Patient stated nothing wrong with foot dressing was just changed and service writer advisor not permitted to remove dressing.Patient states nothing is wrong with foot and we need to focus on his "Gut".Patient request no one else come in regarding his foot it is a waste of time.Grants Assistant agrees with current recommendations.No further questions or concerns upon writers departure. Wound/Pressure Injury - Patient Status Premedicated for Pain Prior to Dressing Change: No - Wound Right Foot Wound Assessment: Admission Requested from Provider a Wound Care Consult: No (Pt bernardo Bush RN,[facility] ) Drainage Description: Serous Incision - Patient Status Premedicated for Pain Prior to Dressing Change: No
--- NOTE | 2018-06-07 10:52 | P.PN ---
Subjective Interval history: Nursing reports that the patient has some bradycardia into the 30s overnight. Initially patient was asymptomatic but then he started complaining of chest pressure to the nurse and still complains of unchanged abdominal/epigastric pain since yesterday. Patient is upset that he is unable to eat because he is not sure if he will have surgery today or not given his arrhythmia issues. Physical Exam Vital signs: Vital Signs 06/06/18 11:37 06/06/18 16:00 06/06/18 20:00 Temperature 98.0 F 97.6 F Pulse Rate 71 57 L 52 L Respiratory Rate 17 18 18 Blood Pressure 132/65 110/68 93/55 L Pulse Oximetry 100 99 99 06/07/18 00:00 06/07/18 04:00 06/07/18 08:00 Temperature 97.6 F 97.5 F L 97.6 F Pulse Rate 39 L 38 L 43 L Respiratory Rate 18 17 20 Blood Pressure 91/64 L 103/76 114/69 Pulse Oximetry 96 95 95 Intake & Output 06/06/18 06/07/18 06/07/18 18:59 06:59 18:59 Intake Total 50 / 50 2100 / 2100 Balance 50 / 50 2100 / 2100 Weight 65 kg 66 kg Intake: IV 50 / 50 2100 / 2100 NS Inj 1,000 ML @ 100 mls/hr IV 1000 / 1000 .CONT .Q10H SATHISH Rx#:[id number] Zosyn 3.375 GM Premix 50 ML @ 50 / 50 100 / 100 100 mls/hr IV.SIG Q6H SATHISH Rx#: [id number] NS Inj 1,000 ML @ Wide Open IV. 1000 / 1000 SIG BOLUS ONE Rx#:[id number] Other: # Voids 1 Date of Last Bowel Movement 06/06/18 Weight On Admission 65 kg Narrative: Obvious bradycardic rate, but regular rhythm Awake alert, no acute distress Has only deep subxiphoid tenderness to palpation right upper quadrant tenderness to palpation, otherwise abdomen soft, no guarding is noted Results - Labs CBC & Chem 7: 06/07/18 06:30 06/07/18 06:30 Laboratory Results - last 24 hr 06/07/18 06/07/18 06/07/18 06:30 06:30 06:30 WBC 4.2 RBC 3.84 L Hgb 11.9 L Hct 35.8 L MCV 93.3 MCH 31.0 MCHC 33.2 RDW 15.4 Plt Count 172 MPV 7.6 Neut % (Auto) 52.4 Lymph % (Auto) 38.9 [place] % (Auto) 6.1 Eos % (Auto) 1.9 Baso % (Auto) 0.7 Neut # (Auto) 2.2 Lymph # (Auto) 1.6 [place] # (Auto) 0.3 Eos # (Auto) 0.1 Baso # (Auto) 0.0 WBC Differential . Differential Comment Auto diff final Sodium 145 Potassium 4.4 Chloride 114 H Carbon Dioxide 28.1 Anion Gap 3 L BUN 12 Creatinine 0.92 Estimated GFR Greater than 89 Random Glucose 85 Lactic Acid 0.4 Calcium 7.9 L Magnesium Total Bilirubin 0.5 AST 50 H ALT 57 Alkaline Phosphatase 51 Total Protein 5.0 L D Albumin 2.8 L TSH Free T4 06/07/18 06/07/18 06/07/18 06:30 06:30 06:30 WBC RBC Hgb Hct MCV MCH MCHC RDW Plt Count MPV Neut % (Auto) Lymph % (Auto) [place] % (Auto) Eos % (Auto) Baso % (Auto) Neut # (Auto) Lymph # (Auto) [place] # (Auto) Eos # (Auto) Baso # (Auto) WBC Differential Differential Comment Sodium Potassium Chloride Carbon Dioxide Anion Gap BUN Creatinine Estimated GFR Random Glucose Lactic Acid Calcium Magnesium 1.8 Total Bilirubin AST ALT Alkaline Phosphatase Total Protein Albumin TSH 4.000 H Free T4 0.96 Assessment and Plan - Plan Intractable Abdominal pain secondary to Cholelithiasis/Cholecystitis -Improved with pain medicine and antibiotics, continue, general surgery planning cholecystectomy once cleared with cardiology Symptomatic bradycardia -EKG per my independent review shows sinus bradycardia and QTC is noted to be within normal limits. Noted borderline hypotension, TSH elevated but free T4 is within normal limits, echo pending, cardiology consult for clearance and further management. . Polysubstance abuse he states smoker Cigarettes on pack daily, Alcohol occasional, Cocaine and marijuana strongly recommended to avoid this substances, stop smoking counseled. Right foot dressed asked for wound care DVT prophylaxis with SCDs awaiting for procedure tomorrow.
--- NOTE | 2018-06-07 10:57 | XR ---
EXAM DATE: 06/07/2018 10:39 AM EDT AGE/SEX: 38 years / Male INDICATIONS: Right ankle pain. CLINICAL DATA: This is the patient's initial encounter. Patient reports that signs and symptoms have been present for 7 - 11 months and indicates a pain score of 8/10. MEDICAL/SURGICAL HISTORY: None. . ORIF Right ankle. COMPARISON: C, FOOT COMPLETE RIGHT 3V, 05/21/2018. . FINDINGS: 2 osseous screws secure the medial malleolus. Ankle mortise is symmetric. Skin staple overlies the la teral malleolus on the frontal projection and projects over the talar neck on the lateral. There appe ars to be an accessory ossification inferior to the lateral malleolus. An additional ossicle is seen medial to the calcaneus and is quite dense possibly representing sclerosis or osteonecrosis. CONCLUSION: 1. Osseous screws secure the medial malleolus. Ankle mortise is symmetric. 2. Accessory ossification inferior to the lateral malleolus. Sclerotic ossicle medial to the calcane us. 3. No acute fracture. No change from prior. Electronically signed by: Emmett Hansen MD 06/07/2018 10:55 AM EDT
[2018-06-07] MEDS: Senna/Docusate Sodium 8.6/50 MG Tablet PO SCH ×2 (11:07→21:41)
--- NOTE | 2018-06-07 16:26 | MB ---
cc: Roderick Bagley MD DATE: 06/07/2018 REASON FOR CONSULTATION: Bradycardia, chest pain. HISTORY OF PRESENT ILLNESS: The patient is a 38-year-old white male with no major past medical history, who presented to the emergency department with complaints of epigastric/chest pain. The patient states 2 days ago he developed a substernal chest and epigastric discomfort described as "just a pain." The discomfort persisted in a constant fashion, so he came to the emergency department. He has gained relief of the symptoms with analgesics. He denies shortness of breath, pleurisy, lightheadedness, syncope, near syncope, palpitations, pedal edema, paroxysmal nocturnal dyspnea. PAST MEDICAL HISTORY: None. CARDIAC MEDICATIONS: None. ALLERGIES: NO KNOWN DRUG ALLERGIES. FAMILY HISTORY: There is no significant family history of early myocardial infarction. SOCIAL HISTORY: The patient smokes cigars. He denies smoking cigarettes. He also denies alcohol or drug abuse. REVIEW OF SYSTEMS: As in the history of present illness, otherwise negative or noncontributory. He also denies headache, melena, bright red blood per rectum, fevers. PHYSICAL EXAMINATION: VITAL SIGNS: His blood pressure is 114/69 with a pulse of 43, respirations 20. GENERAL: He is a well-developed, well-nourished white male in no acute distress. NECK: Jugular venous pressure is normal. Carotid pulses are 2+ bilaterally and without bruits. CHEST: Reveals clear lungs castaneda. CARDIAC: He has a regular rhythm and rate without S3, S4, or murmur. ABDOMEN: He has a soft, nontender abdomen. Bowel sounds are present. There is no definite hepatosplenomegaly. EXTREMITIES: Reveals no clubbing, cyanosis or edema. DIAGNOSTIC DATA: EKG shows sinus bradycardia, otherwise normal EKG. Laboratory data includes negative cardiac enzymes. Potassium 4.4, BUN 12, creatinine 0.92. AST 50, ALT 57, total bilirubin 0.5. WBC 4.2, hemoglobin 11.9, platelets 172. Chest x-ray shows no acute disease. IMPRESSION: Exceedingly atypical chest pain, asymptomatic bradycardia in this 38-year-old white male with no major past medical history, admitted with acute on chronic cholecystitis, now being considered for laparoscopic cholecystectomy. The patient has no symptoms directly attributable to the bradycardia, which is sinus bradycardia. He has had no systolic blood pressures less than 90. There has been no evidence for high degree AV block. His heart rates are predominantly in the 40's, except while asleep, when they do drop into 30's transiently. With respect to his chest discomforts, they are exceedingly atypical for myocardial ischemia. Despite prolonged discomfort in the last 2 days, cardiac enzymes are negative for myocardial infarction. EKG showed no acute ST segment or T-wave changes. The patient has no major risk factors for coronary artery disease. RECOMMENDATIONS: 1. No additional cardiac workup or therapy. 2. He is cleared for cholecystectomy from a cardiac standpoint. 3. Will follow up as needed. MD PABLO Anguiano/kierra , 03:58 PM , 04:06 PM MIRI
[2018-06-08] MEDS: Sod Chloride 0.9% Inj 1,000 ML IV.CONT SCH ×3 (04:16→23:39)
[2018-06-08] MEDS: Piperacil/Tazo 3.375 GM Premix 50 ML IV.SIG SCH ×4 (04:47→23:38)
[2018-06-08] MEDS: Senna/Docusate Sodium 8.6/50 MG Tablet PO SCH ×2 (08:01→23:11)
[2018-06-08] MEDS ORDERED: Neostigmine Inj 5 MG/5 ML Syringe IV.PUSH ONE (12:00)
[2018-06-08] MEDS ORDERED: Lidocaine PF 1% Inj 5 ML Syringe INFILTRATN ONE (12:00)
[2018-06-08] MEDS ORDERED: Glycopyrrolate Inj 1 MG/5 ML Syringe IV.PUSH ONE (12:00)
--- NOTE | 2018-06-08 15:34 | P.PN ---
Subjective Interval history: Nursing denies any deterioration since last night. Patient reports still having some nausea and pain but is tolerable overall. Has no new complaints. Would like his Geodon restarted as well. Physical Exam Vital signs: Vital Signs 06/07/18 16:00 06/07/18 16:02 06/07/18 20:00 Temperature 97.5 F L 97.8 F Pulse Rate 40 L 43 L 36 L Respiratory Rate 20 18 Blood Pressure 123/75 112/63 Pulse Oximetry 97 98 06/07/18 21:40 06/08/18 00:00 06/08/18 04:00 Temperature 97.6 F 97.4 F L Pulse Rate 42 L 49 L Respiratory Rate 18 17 18 Blood Pressure 99/55 L 112/64 Pulse Oximetry 96 97 06/08/18 08:00 06/08/18 12:00 Temperature 98.0 F 97.4 F L Pulse Rate 38 L 43 L Respiratory Rate 20 20 Blood Pressure 108/66 105/72 Pulse Oximetry 98 100 Intake & Output 06/07/18 06/08/18 06/08/18 18:59 06:59 18:59 Intake Total 1100 / 1100 1683 / 1683 1050 / 1050 Balance 1100 / 1100 1683 / 1683 1050 / 1050 Weight 64.2 kg Intake: IV 1100 / 1100 1100 / 1100 1050 / 1050 NS Inj 1,000 ML @ 100 mls/hr IV 1000 / 1000 1000 / 1000 1000 / 1000 .CONT .Q10H SATHISH Rx#:[id number] Zosyn 3.375 GM Premix 50 ML @ 100 / 100 100 / 100 50 / 50 100 mls/hr IV.SIG Q6H SATHISH Rx#: [id number] Oral 0 / 0 580 / 580 Oral Supplement 3 / 3 Other: # Voids 4 2 Date of Last Bowel Movement 06/06/18 06/06/18 # Bowel Movements 0 Narrative: Unchanged abdominal tenderness to palpation to a mild to moderate extent over the right upper quadrant Able to ambulate without any acute distress - Urinary Catheter Management Indwelling Urethral Catheter Cath placed during this visit: yes Reason for continuing: Hourly intake/output Insertion date: 06/08/18 Insertion time: 22:10 Results - Labs CBC & Chem 7: 06/07/18 06:30 06/07/18 06:30 Assessment and Plan - Plan Intractable Abdominal pain secondary to Cholelithiasis/Cholecystitis -Improved with pain medicine and antibiotics, -On scheduled for cholecystectomy today, clear per cardiology continue, Asymptomatic bradycardia per cardiology . Polysubstance abuse he states smoker Cigarettes on pack daily, Alcohol occasional, Cocaine and marijuana strongly recommended to avoid this substances, stop smoking counseled. Right foot dressed asked for wound care DVT prophylaxis with SCDs
[2018-06-08] MEDS ORDERED: Bupivacaine/Epinephrine Inj 0.25% 50 ML Vial ONE (21:33)
[2018-06-08] MEDS ORDERED: *morphine SULFATE 10 MG/ML PERIprocedure ONLY ONE (23:32)
[2018-06-08] MEDS ORDERED: fentaNYL Citrate Inj 100 MCG/2 ML Ampul ONE (23:32)
[2018-06-08] MEDS ORDERED: Morphine Inj 4 MG/ML Vial ONE (23:33)
[2018-06-09] MEDS: Piperacil/Tazo 3.375 GM Premix 50 ML IV.SIG SCH ×2 (03:08→09:29)
[2018-06-09] MEDS: Senna/Docusate Sodium 8.6/50 MG Tablet PO SCH (09:31)
[2018-06-09] MEDS: Sod Chloride 0.9% Inj 1,000 ML IV.CONT SCH (09:33)
--- NOTE | 2018-06-09 10:47 | P.PN ---
Subjective Interval history: Follow-up cholecystitis June 09, 2018-patient seen and examined, denies any abdominal pain. He status post lap cholecystectomy postop day #1 Currently afebrile and states he is ready for discharge home. Physical Exam Vital signs: Vital Signs 06/08/18 12:00 06/08/18 16:00 06/08/18 20:00 Temperature 97.4 F L 97.8 F 97.8 F Pulse Rate 55 L 39 L 35 L Respiratory Rate 20 20 18 Blood Pressure 105/72 109/67 114/67 Pulse Oximetry 100 97 99 06/08/18 23:22 06/08/18 23:30 06/08/18 23:45 Temperature 97.4 F L 97.4 F L 97.4 F L Pulse Rate 78 75 54 L Respiratory Rate 15 15 11 L Blood Pressure 142/65 H 135/71 135/79 Pulse Oximetry 95 95 94 L 06/09/18 00:00 06/09/18 03:03 06/09/18 04:00 Temperature 97.6 F Pulse Rate 61 39 L Respiratory Rate 15 18 18 Blood Pressure 110/62 Pulse Oximetry 92 L 06/09/18 07:00 06/09/18 08:00 Temperature Pulse Rate 65 Respiratory Rate 18 Blood Pressure Pulse Oximetry Intake & Output 06/08/18 06/09/18 06/09/18 18:59 06:59 18:59 Intake Total 1100 / 1100 2050 / 2050 1000 / 1000 Output Total 525 / 525 Balance 1100 / 1100 1525 / 1525 1000 / 1000 Weight 65.4 kg Intake: IV 1100 / 1100 1050 / 1050 1000 / 1000 NS Inj 1,000 ML @ 100 mls/hr IV 1000 / 1000 1000 / 1000 1000 / 1000 .CONT .Q10H SATHISH Rx#:[id number] Zosyn 3.375 GM Premix 50 ML @ 100 / 100 50 / 50 100 mls/hr IV.SIG Q6H SATHISH Rx#: [id number] Oral 0 / 0 Anesthesia Amount 1000 / 1000 Output: Urine 0 / 0 Estimated Blood Loss 25 / 25 Urine Amount (Catheter) 500 / 500 Indwelling Urethral Catheter 500 / 500 Other: # Voids 4 0 Date of Last Bowel Movement 06/08/18 06/06/18 # Bowel Movements 0 Narrative: GENERAL: NAD SKIN: Warm and dry. HEAD: Normocephalic. EYES: No scleral icterus. No injection or drainage. NECK: Supple, trachea midline. No JVD or lymphadenopathy. CARDIOVASCULAR: Regular rate and rhythm without murmurs, gallops, or rubs. RESPIRATORY: Breath sounds equal bilaterally. No accessory muscle use. GASTROINTESTINAL: Abdomen soft, non-tender, nondistended. inc c/d/i MUSCULOSKELETAL: No cyanosis, or edema. BACK: Nontender without obvious deformity. No CVA tenderness. - Urinary Catheter Management Indwelling Urethral Catheter Cath placed during this visit: yes Reason for continuing: Hourly intake/output Insertion date: 06/08/18 Insertion time: 22:10 Results - Labs CBC & Chem 7: 06/07/18 06:30 06/07/18 06:30 - Procedures s/p lap cholecystectomy June 08, 2018 Assessment and Plan - Assessment (1) Acute cholecystitis Code(s): K81.0 - Acute cholecystitis Status: Acute - Plan 38-year-old man with Cholecystitis Status post lap cholecystectomy June 08, 2018 Continue current management, patient's clear by general surgery for discharge home Asymptomatic bradycardia per cardiology Polysubstance abuse he states smoker Cigarettes on pack daily, Alcohol occasional, Cocaine and marijuana strongly recommended to avoid this substances, stop smoking counseled. Right foot dressed asked for wound care DVT prophylaxis with SCDs
--- NOTE | 2018-06-09 10:49 | P.DS ---
Date of admission: 06/06/18 10:26 Primary care physician: Douglas Moya MD Anticipated date of discharge: 06/09/18 Brief History from admission: This is a pleasant male who came to Emergency room with complaint of Abdominal pain on epigastric area for the last one week, and radiated to his back, has had similar episodes in the past, and states that he was told he has gallbladder issues. Pain describes been intermittent initially , today has been constant, 4 out of 10, p.o. intake and bowel movement makes it worse, no alleviating factors. Tried Rolaids without relief of symptoms. Reports shortness of breath with the pain, nausea but no vomiting, nonbloody diarrhea, but denies fever, chills, dysuria. discussed with Emergency medicine Physician found Quiroga sign is positive with sonogram, and also very symptomatic patient, for this reason was discussed by ER physician with General Surgery who recommended for Cholecystectomy to be performed tomorrow. not found Cholelithiasis or cholecystitis on Ultrasound. Seen in Emergency room in the presence of a friend, he states has severe abdominal pain. 8/10 in intensity on his right upper quadrant and asking for pain medicine. DS: Diagnosis - Discharge Diagnosis (1) Acute cholecystitis Status: Acute DS: Summary Hospital Course: General surgery was consulted and patient underwent lap cholecystectomy on June 08, 2018. Diet was advanced accordingly. During hospitalization, cardiology was consulted secondary to bradycardia however patient was treated conservatively. Orthopedic surgery was also consulted due to patient's recent history of open reduction internal fixation right lower extremity. Prior to discharge, patient's conditions improved and vitals remained stable. Patient will need follow-up with surgery in 1-2 weeks. - Time Spent with Patient Total time spent providing and/or coordinating discharge services: Less than 30 minutes - Quality: VTE Deep Vein Thrombosis/Pulmonary Embolism Present on Admission: No Exam Vital signs: Vital Signs 06/08/18 12:00 06/08/18 16:00 06/08/18 20:00 Temperature 97.4 F L 97.8 F 97.8 F Pulse Rate 55 L 39 L 35 L Respiratory Rate 20 20 18 Blood Pressure 105/72 109/67 114/67 Pulse Oximetry 100 97 99 06/08/18 23:22 06/08/18 23:30 06/08/18 23:45 Temperature 97.4 F L 97.4 F L 97.4 F L Pulse Rate 78 75 54 L Respiratory Rate 15 15 11 L Blood Pressure 142/65 H 135/71 135/79 Pulse Oximetry 95 95 94 L 06/09/18 00:00 06/09/18 03:03 06/09/18 04:00 Temperature 97.6 F Pulse Rate 61 39 L Respiratory Rate 15 18 18 Blood Pressure 110/62 Pulse Oximetry 92 L 06/09/18 07:00 06/09/18 08:00 Temperature Pulse Rate 65 Respiratory Rate 18 Blood Pressure Pulse Oximetry Intake & Output 06/08/18 06/09/18 06/09/18 18:59 06:59 18:59 Intake Total 1100 / 1100 2050 / 2050 1000 / 1000 Output Total 525 / 525 Balance 1100 / 1100 1525 / 1525 1000 / 1000 Weight 65.4 kg Intake: IV 1100 / 1100 1050 / 1050 1000 / 1000 NS Inj 1,000 ML @ 100 mls/hr IV 1000 / 1000 1000 / 1000 1000 / 1000 .CONT .Q10H SATHISH Rx#:[id number] Zosyn 3.375 GM Premix 50 ML @ 100 / 100 50 / 50 100 mls/hr IV.SIG Q6H SATHISH Rx#: [id number] Oral 0 / 0 Anesthesia Amount 1000 / 1000 Output: Urine 0 / 0 Estimated Blood Loss 25 / 25 Urine Amount (Catheter) 500 / 500 Indwelling Urethral Catheter 500 / 500 Other: # Voids 4 0 Date of Last Bowel Movement 06/08/18 06/06/18 # Bowel Movements 0 Narrative: GENERAL: NAD SKIN: Warm and dry. HEAD: Normocephalic. EYES: No scleral icterus. No injection or drainage. NECK: Supple, trachea midline. No JVD or lymphadenopathy. CARDIOVASCULAR: Regular rate and rhythm without murmurs, gallops, or rubs. RESPIRATORY: Breath sounds equal bilaterally. No accessory muscle use. GASTROINTESTINAL: Abdomen soft, non-tender, nondistended. inc c/d/i MUSCULOSKELETAL: No cyanosis, or edema. BACK: Nontender without obvious deformity. No CVA tenderness. Results Procedures completed during hospitalization: s/p lap cholecystectomy June 08, 2018 Pending studies at discharge: Pending at discharge 06/08/18 08:48 Surgical [PTH] Routine - Impressions ITS Impressions Chest X-Ray 06/06/18 07:27 CONCLUSION: 1. No acute cardiopulmonary disease. Gallbladder Ultrasound 06/06/18 07:27 CONCLUSION: 1. Multiple gallstones with minimal tenderness of the gallbladder. There are no other ancillary signs of acute cholecystitis. Ankle X-Ray 06/07/18 00:00 CONCLUSION: 1. Osseous screws secure the medial malleolus. Ankle mortise is symmetric. 2. Accessory ossification inferior to the lateral malleolus. Sclerotic ossicle medial to the calcaneus. 3. No acute fracture. No change from prior. Discharge Plan - Discharge Disposition Patient Disposition: 01 Discharge Home - Discharge Condition Condition: Stable - Discharge Order Discharge Orders: Discharge Order (Routine); Ordered 06/09/18 Ordered By: Clem Montgomery - Physicians Team Primary Care Provider: Douglas Moya Attending Provider: Clem Montgomery Other Providers: Chaka Rush MD ; Roderick Bagley MD
[2018-06-09 14:39] VITALS: BP 124/61; PULSE 60; RESP 20; TEMP 97.9; O2SAT 96
--- NOTE | 2018-06-16 20:49 | MP ---
cc: Chaka Rush MD DATE OF OPERATION: 06/08/2018 PREOPERATIVE DIAGNOSIS: Acute cholecystitis. POSTOPERATIVE DIAGNOSIS: Acute cholecystitis. PROCEDURE PERFORMED: Laparoscopic cholecystectomy. SURGEON: Chaka Rush MD TOOTH CLERK: Staff. ANESTHESIA: General and local anesthetic. ESTIMATED BLOOD LOSS: Less than 25 mL SPECIMENS: None. FINDINGS: Inflamed gallbladder with edema consistent with a very acute cholecystitis. INDICATIONS FOR PROCEDURE: The patient is a 38-year-old male who presented to the emergency department at [facility] with severe right upper quadrant pain. Upon workup, he was found to have gallstones and gallbladder edema with inflammation around the gallbladder concerning for acute cholecystitis. The patient was admitted and general surgery was consulted for evaluation. After discussion with the patient about the risks, benefits and alternatives to treatment of his acute cholecystitis with laparoscopic cholecystectomy, he agreed to undergo the procedure. DESCRIPTION OF PROCEDURE: The patient was taken to the operating room and placed in a supine position, placed under general endotracheal anesthesia. The patient's abdomen was shaved, prepped and draped in sterile fashion. Timeout was performed. The abdomen was entered through a periumbilical incision in a Rivka-type technique. We entered the abdomen and insufflated the abdomen without difficulty. We directly placed a port into the abdomen under direct visualization. We then placed a 10 mm port in the subxiphoid position as well as two 5 mm ports in the right upper quadrant under direct visualization of the laparoscope. I was able to grasp the gallbladder with the dome of the gallbladder retracted upward. The gallbladder was edematous, consistent with acute cholecystitis. There was gallstones that were mobile inside the gallbladder. I was able to use the hook electrocautery as well as the dissector to easily identify the cystic duct and the triangle of Calot. This was again dissected out completely and the cystic artery was also identified. A critical view of safety was obtained. We doubly clipped the cystic duct and cystic artery proximal with the 5 mm clip special skills officer and singly distally. We divided these structures with the laparoscopic EndoShears. We used the hook electrocautery to take the gallbladder off the gallbladder fossa. The gallbladder was removed from the abdomen with the EndoCatch bag through the subxiphoid port. We irrigated the abdomen in the right upper quadrant until all suctioning was clear. We had no evidence of any bile leak or bleeding or any complication. We had no evidence of any intra-abdominal pathology on diagnostic laparoscopy. We removed the ports under visualization of the laparoscope and expressed pneumoperitoneum. We closed the Rivka entry site as well as the subxiphoid point at the fascial layer with Vicryl sutures. We closed the skin with 4-0 Monocryl and Dermabond. The patient was discontinued from anesthesia and taken to the PACU in stable condition. The patient tolerated the procedure well. No apparent complications. All counts were correct. I was present and scrubbed for the entire procedure. MD TANYA Araya/matti/layo , 04:58 PM , 05:08 PM
== END 2018-06-09 11:36 | disposition home or self-care (01) ==
LOC: NEPE 07:16 → NEDA 10:26 → N04 15:56 → NEDA 15:56
PROVIDERS: ADMIT Hospitalist; ATTEND Hospitalist